=== PATIENT | female | born 1980 | race Caucasian/White ===

== ENCOUNTER 2016-10-11 16:25 | Emergency (ER) | payer OTHER ==
[2016-10-11] MEDS ORDERED: ALBUTEROL SULFATE 2.5 MG/3 ML AMPUL.NEB NEB ONE (16:48)
--- NOTE | 2016-10-11 16:50 | ED Physician Documentation ---
Dyspnea - HISTORIAN Historian: patient, friend - [facility] Chief Complaint: Cough/ Upper Respiratory Additional Information: cough prod green sputum congestion Onset: days ago (2) Duration: continues in ED Initiating Event: upper respiratory illness, exposure to smoke Severity: moderate Exacerbated By: change in position, coughing Associated Symptoms: chest discomfort, productive cough. denies: bloody cough - ROS CONST: no problems EYES/ENT: denies: problems with vision GI/: denies: abdominal pain - PAST HX Lung Disease: asthma, pneumonia, other PE Risk Factors: none Surgeries/Procedures: other (leep) Other History: other (psoriasis) Allergies/Adverse Reactions: Allergies Allergy/AdvReac Type Severity Reaction Status Date / Time No Known Allergies Allergy Verified 09/05/14 22:01 Home Medications: Ambulatory Orders Medication Instructions Recorded Azithromycin [Zithromax] 250 mg PO DAILY #4 tablet 09/05/14 Benzonatate [Tessalon] 100 mg PO TID PRN #10 capsule 09/05/14 - SOCIAL HX Smoking History: greater than 1 pack/day Alcohol Use: none Drug Use: none - FAMILY HX Family History: no significant history - VITAL SIGNS Vital Signs: Vital Signs Temp Pulse Resp BP Pulse Ox 115/70 09/05/14 22:19 - REVIEWED ASSESSMENTS Nursing Assessment Reviewed: Yes Vitals Reviewed: Yes ED Results Lab/Radiology - Orders Orders: ED Orders Category Date Time Status CHEST 2 VIEW [CHEST P.A.&LAT 2 VIEWS] [RAD] Stat Exams 10/11/16 Ordered URINE HCG [URINE HCG] Stat Lab 10/11/16 Uncollected Albuterol Sulfate [Ventolin] Med 10/11/16 16:48 Once 2.5 mg NEB NOW ONE Dyspnea Physical Exam - EXAM General Appearance: mild distress EENT: eye inspection normal, ENT inspection normal Neck: nml inspection. No: lymphadenopathy Respiratory: no resp. distress, no pain on inspiration, speaks full sentences, wheezes, other (freq cough haydee w/ckough) CVS: reg. rate & rhythm Abdomen: non-tender, no distention Skin: color nml, no rash, diaphoresis, pallor Extremities: non-tender, normal range of motion Neuro/Psych: oriented x3, motor nml, sensation nml, mood/affect nml Discharge Clincal Impression: poss fungal resp infection Home Medications: Ambulatory Orders Azithromycin [Zithromax] 250 mg PO DAILY #4 tablet 09/05/14 Benzonatate [Tessalon] 100 mg PO TID PRN #10 capsule 09/05/14 Comments: dc cigarettes Condition: Fair Disposition: 01 HOME, SELF-CARE Decision to Admit: NO Decision Time: 18:12
[2016-10-11 17:07] VITALS: BP 157/63
[2016-10-11] MEDS ORDERED: methylPREDNISolone ACETATE 80 MG/ML VIAL IM ONE ×2 (17:42→17:52)
[2016-10-11] MEDS ORDERED: methylPREDNISolone ACETATE 40 MG/ML VIAL IM ONE (17:42)
--- NOTE | 2016-10-11 18:00 | Diagnostic Imaging Report ---
[facility] [id number] [facility].[address] [address] Report Submission Date: Oct 11, 2016 5:06:09 PM CDT Patient Study Name: CORY FAIR Date: Oct 11, 2016 4:52:36 PM CDT Modality Type: CR Gender: F Description: CHEST : 82 Institution: [facility] Physician: KIARA MCCAULEY - MOJGAN Chest - two views Clinical history: Productive cough for 1 week. Findings: Examination of the chest in PA and lateral views with comparison to examination of 09/05/2014 demonstrates lungs to be clear. Cardiovascular and mediastinal silhouettes are stable. Bony thorax is intact. There is accentuation of the bronchovascular markings in the bases related to overlying soft tissues. Impression: 1. No significant change. 2. No active disease. Electronically signed on Oct 11, 2016 5:06:09 PM CDT by: Herb MENSAH
== END 2016-10-11 18:25 | disposition home or self-care (01) ==
LOC: ED 16:25
DX: R05 Cough (principal); R07.89 Other chest pain; F17.210 Nicotine dependence, cigarettes, uncomplicated
CPT/HCPCS: 71020; J1030; J1040; 96374; 99283

== ENCOUNTER 2018-03-28 23:43 | Emergency (ER) | payer MEDICAID, OTHER ==
--- NOTE | 2018-03-28 23:56 | ED Physician Documentation ---
Lower Extremity Problem - HPI Stated Complaint: knee pain Chief Complaint: Lower Extremity Problem Additional Information: Patient presents to ED with a 2 day history of left knee pain. She states the pain is achy, 3/10, worse when sitting for long periods of time. She denies any injury recently or in the past. She has done nothing to treat the pain. Location of Injury: L knee Onset: days ago (2) Timing: pain intermittent Duration: intermittent episodes Recent Injury: No Where: home Severity: mild Quality: pain Exacerbated By: other (sitting for long periods of time) Relieved By: other (walking) Associated Symptoms: denies: chest pain, shortness of breath Further Comments: no - ROS CONST: no problems. denies: fever MS/SKIN/LYMPH: denies: calf pain, ankle swelling CVS/RESP: denies: chest pain, shortness of breath GI/: denies: abdominal pain EYES/ENT: denies: sore throat NERUO/PSYCH: denies: headache - PAST HX Past History: none PE Risk Factors: none Surgeries/Procedures: none Allergies/Adverse Reactions: Allergies Allergy/AdvReac Type Severity Reaction Status Date / Time No Known Allergies Allergy Verified 10/11/16 19:11 Home Medications: Ambulatory Orders Medication Instructions Recorded Benzonatate [Tessalon] 100 mg PO TID PRN #10 capsule 09/05/14 - SOCIAL HX Smoking History: non-smoker Alcohol Use: none Drug Use: none - FAMILY HX Family History: none - VITAL SIGNS Vital Signs: Vital Signs Temp Pulse Resp BP Pulse Ox 98.6 F 20 92/64 98 03/28/18 23:45 03/28/18 23:45 03/28/18 23:45 03/28/18 23:45 - REVIEWED ASSESSMENTS Nursing Assessment Reviewed: Yes Vitals Reviewed: Yes ED Results Lab/Radiology - Radiology Radiology Impressions: Three views of the left knee Clinical history: Left knee pain. Findings: Examination left knee in AP, lateral and sunrise views fails to demonstrate evidence of fracture, dislocation or other bone or joint pathology. Electronically signed on Mar 29, 2018 12:35:02 AM CDT by: Herb Bethea - Orders Orders: ED Orders Category Date Time Status KNEE 1 OR 2 VIEWS [RAD] Stat Exams 03/29/18 Ordered URINE HCG Stat Lab 03/29/18 00:05 Ordered Lower Extremity Problem - EXAM General Appearance: no distress Knees: left: non-tender, normal inspection, normal range of motion, no evidence of injury Neuro/Tendon: normal sensation, normal motor functions EENT: eye inspection normal RESPIRATORY: no resp distress CVS: reg rate & rhythm, heart sounds normal JOINT: joints nml, Nml gait/weight bearing VASCULAR: no vascular compromise NEURO/PSYCH: oriented X3 SKIN: warm/dry BACK: no CVA tenderness Discharge Clincal Impression: Left knee pain Qualifiers: Chronicity: acute Qualified Code(s): M25.562 - Pain in left knee Referrals: oMnika Adams BRIM STRETCHER [Primary Care Provider] - 2 Days Additional Instructions: Take tylenol and/or ibuprofen as needed for pain. Do strengthening exercises Decision to Admit: NO Date of Decison to Admit: 03/29/18 Decision Time: 00:45
[2018-03-29 01:08] VITALS: BP 102/68
--- NOTE | 2018-03-29 06:44 | Diagnostic Imaging Report ---
BRITTANI WASHBURN [facility] [id number] [facility] [address] [address] Report Submission Date: Mar 29, 2018 12:35:02 AM CDT Patient Study Name: CORY FAIR Date: Mar 29, 2018 12:14:57 AM CDT Modality Type: DX Gender: F Description: LOWER EXTREMITY : 82 Institution: [facility] Physician: BRITTANI WASHBURN Three views of the left knee Clinical history: Left knee pain. Findings: Examination left knee in AP, lateral and sunrise views fails to demonstrate evidence of fracture, dislocation or other bone or joint pathology. Electronically signed on Mar 29, 2018 12:35:02 AM CDT by: Herb MENSAH
== END 2018-03-29 01:05 ==
LOC: ED 23:43
DX: M25.562 Pain in left knee (principal)
CPT/HCPCS: 73560